=== PATIENT | female | born 1980 | race Caucasian/White ===

== ENCOUNTER 2022-01-23 18:01 | Emergency (ER) | payer MEDICAID ==
[~2022-01-23] VITALS: Ht 175.3 cm; Wt 103.0 kg
[2022-01-23 18:06] VITALS: BP 123/73
[2022-01-23] MEDS ORDERED: BACITRACIN OINT 500 UNITS/GM PKT TP ONE ×2 (18:50→19:36)
[2022-01-23] MEDS ORDERED: LIDOCAINE MPF 1% 10 MG/ML VIAL INJ ONE (18:50)
--- NOTE | 2022-01-23 19:19 | NUR ---
PT IN [facility] FOR LAC REPAIR
--- NOTE | 2022-01-23 19:23 | NUR ---
PT LEFT ELBOW WAS IRRIGATED
[2022-01-23] MEDS ORDERED: NEOMYCIN/POLYMYXIN/BACITRACIN 0.9 GM/1 PKT TP ONE ×2 (19:40→19:45)
--- NOTE | 2022-01-23 19:40 | NUR ---
NO BACITRACIN AVAILABLE IN ER. VIRGIL SCHRADER GAVE A VERBAL ORDER TO USE TRIPLE ANTIBIOTIC OINTMENT. ORDERS CARRIED OUT.
[2022-01-23] MEDS ORDERED: BACI1PAC6 TP (19:51)
[2022-01-23] MEDS ORDERED: IBUP-2213 PO (19:51)
[2022-01-23] MEDS ORDERED: IBUPROFEN 600 MG TAB ONE (20:13)
[2022-01-23] MEDS ORDERED: IBUPROFEN 600 MG TAB PO ONE (20:15)
--- NOTE | 2022-01-23 20:15 | NUR ---
VERBAL ORDER FROM SCHRADER TO GIVE IBUPROFEN 600MG PO FOR PAIN. ORDERS CARRIED OUT.
[2022-01-23 20:16] VITALS: BP 123/73
--- NOTE | 2022-01-23 20:16 | NUR ---
Patient discharged with v/s stable. Written and verbal after care instructions given and explained. Patient alert, oriented and verbalized understanding of instructions. Ambulatory with steady gait. All questions addressed prior to discharge. ID band removed. Patient advised to follow up with PMD. Rx of IBUPRFEN AND BACITRACIN given. Patient educated on indication of medication including possible reaction and side effects. Opportunity to ask questions provided and answered.
== END 2022-01-23 20:15 | disposition home or self-care (01) ==
LOC: MED 18:01
DX: S51.012A Laceration without foreign body of left elbow, initial encounter (principal); R03.0 Elevated blood-pressure reading, without diagnosis of hypertension; Z79.899 Other long term (current) drug therapy; W22.8XXA Striking against or struck by other objects, initial encounter; Y93.89 Activity, other specified; Y92.89 Other specified places as the place of occurrence of the external cause; Y99.8 Other external cause status
CPT/HCPCS: 12002; 90471; 90715; 99284; J2001

== ENCOUNTER 2022-02-06 13:48 | Emergency (ER) | payer MEDICAID ==
[~2022-02-06] VITALS: Ht 175.3 cm; Wt 101.6 kg
[~2022-02-06 13:48] MED LIST: BACI1PAC6 TP; IBUP-2213 PO
[2022-02-06 14:06] VITALS: BP 142/82
--- NOTE | 2022-02-06 14:43 | NUR ---
LWBS AT THIS TIME
--- NOTE | 2022-02-06 15:17 | NUR ---
RECIEVED A CALL FROM ADMITTING STATING PATIENT IS BACK AND READY TO BE SEEN. PATIENT TO WAIT IN LOBBY.
--- NOTE | 2022-02-06 15:25 | NUR ---
pt being evaluated by jeffrey garcia
[2022-02-06] MEDS ORDERED: BACITRACIN OINT 500 UNITS/GM PKT TP ONE ×2 (15:27→15:30)
--- NOTE | 2022-02-06 15:30 | NUR ---
41 Y/O FEMALE BIB SELF PRESENTS IN ED FOR SUTURE REMOVAL, NOTED 5 SUTURES ON THE UNDERSIDE OF THE LEFT ELBOW. AREA APPEARS CLEAN AND DRY, SUTURES INTACT. pmh: denies nka med: denies
[2022-02-06] MEDS ORDERED: BACI1PAC6 TP (15:32)
[2022-02-06 15:43] VITALS: BP 142/82
== END 2022-02-06 15:40 | disposition home or self-care (01) ==
LOC: MED 13:48
DX: S51.012D Laceration without foreign body of left elbow, subsequent encounter (principal); Z48.02 Encounter for removal of sutures; X58.XXXD Exposure to other specified factors, subsequent encounter
CPT/HCPCS: 99282